=== PATIENT | female | born 1970 | race Caucasian/White ===

== ENCOUNTER → 2025-03-23 | Day surgery (SDC) | payer MEDICAID ==
[~2025-03-23] VITALS: Ht 165.1 cm; Wt 81.6 kg
[~2025-03-23] MED LIST: BALANCED SALT IRRIG SOLN COMB1 500ML OP NR; CYCLOPENTOLATE HCL 1% OPHTH DROPS 2ML LEFTEYE ONE; FENTANYL CITRATE/PF 50MCG/ML 2ML VIAL IV PRN; FENTANYL CITRATE/PF 50MCG/ML 2ML VIAL ONE; HYALURONATE SODIUM 10MG/ML 0.55ML SYRINGE IO ONE; HYDR200T35 PO; LACTATED RINGERS 1,000 ML IV SCH; LIDOCAINE HCL/PF 1% 10 MG/ML 5ML VIAL ONE; ONDANSETRON HCL 4MG/2ML INJ IV PRN; PHENYLEPHRINE HCL 10% OPHTH DROPS 5ML LEFTEYE ONE; PROPOFOL 200MG/20ML VIAL IV ONE; TROPICAMIDE 1% OPHTH DROPS 15ML LEFTEYE ONE; TRYPAN BLUE 0.5 ML DISP.SYRIN IO ONE
[2025-03-23 06:37] LABS: UCG SCREEN NEGATIVE
== END | disposition home or self-care (01) ==
LOC: OR 06:04
PROVIDERS: ATTEND Ophthalmology
DX: H25.89 Other age-related cataract (principal); M06.9 Rheumatoid arthritis, unspecified; Z79.899 Other long term (current) drug therapy; Z98.890 Other specified postprocedural states
CPT/HCPCS: 66984; 81025; J3010; J2003; J2704; J3490; Q9957; V2786